=== PATIENT | female | born 1935 | race Caucasian/White ===

== ENCOUNTER 2017-11-09 12:19 | Emergency (ER) | payer OTHER ==
[~2017-11-09] VITALS: Ht 154.9 cm; Wt 80.0 kg
[2017-11-09 12:20] VITALS: BP 148/78; PULSE 98; RESP 20; TEMP 101.5; O2SAT 99
[2017-11-09 12:39] VITALS: BP 168/74; PULSE 93; RESP 22; O2SAT 98
--- NOTE | 2017-11-09 13:29 | PD ---
HPI Chief Complaint: Cold / Flu Symptoms Time Seen by Provider: 13:03 Travel History International Travel<30 days: No Contact w/Intl Traveler<30days: No Traveled to known affect area: No History of Present Illness HPI Patient is an 82-year-old female presents emergency department for evaluation of cough congestion and fever for the past day and a half. Patient states similar thing happened to her some few weeks ago and she went to a facility in [place] where she is from and she was tested for pneumonia and the flu and they were both negative. She states it feels very similar to that. She states she has been tolerating p.o. just fine, no shortness of breath no chest pain. She states that she did receive a flu shot this year. States symptoms are moderate, for the past day and a half, associated signs and symptoms and context as above PFSH Past Medical History Asthma: Yes High Cholesterol: Yes Hypertension: Yes ?: Not Past Surgical History Cholecystectomy: Yes Hysterectomy: Yes Social History Alcohol Use: No (OCC) Tobacco Use: No Substance Use: No Allergies-Medications (Allergen,Severity, Reaction): Coded Allergies: Penicillins (Verified Allergy, Unknown, 11/09/17) Sulfa (Sulfonamide Antibiotics) (Verified Allergy, Unknown, 11/09/17) Reported Meds & Prescriptions Reported Meds & Active Scripts Active Tamiflu (Oseltamivir Phosphate) 75 Mg Cap 75 Mg PO BID 5 Days Review of Systems Except as stated in HPI: all other systems reviewed are Neg Physical Exam Narrative GENERAL: Well-developed well-nourished in no obvious distress. Appears well and nontoxic and younger than stated age SKIN: Focused skin assessment warm/dry. HEAD: Atraumatic. Normocephalic. EYES: Pupils equal and round. No scleral icterus. No injection or drainage. ENT: No nasal bleeding or discharge. Mucous membranes pink and moist. TMs clear bilaterally, oropharynx clear moist. NECK: Trachea midline. No JVD. CARDIOVASCULAR: Regular rate and rhythm. No murmur appreciated. RESPIRATORY: No accessory muscle use. Clear to auscultation. Breath sounds equal bilaterally. GASTROINTESTINAL: Abdomen soft, non-tender, nondistended. Hepatic and splenic margins not palpable. MUSCULOSKELETAL: No obvious deformities. No clubbing. No cyanosis. No edema. NEUROLOGICAL: Awake and alert. No obvious cranial nerve deficits. Motor grossly within normal limits. Normal speech. PSYCHIATRIC: Appropriate mood and affect; insight and judgment normal. Data Data Last Documented VS Vital Signs Date Time Temp Pulse Resp B/P (MAP) Pulse Ox O2 Delivery O2 Flow Rate FiO2 11/09/17 15:32 11/09/17 15:06 101.8 83 18 95 Room Air Orders Orders Sepsis Workup Initiated (11/09/17 ) Complete Blood Count With Diff (11/09/17 13:21) Comprehensive Metabolic Panel (11/09/17 13:21) Prothrombin Time / Inr (Pt) (11/09/17 13:21) Act Partial Throm Time (Ptt) (11/09/17 13:21) Lactic Acid Sepsis Protocol (11/09/17 13:21) Lipase (11/09/17 13:21) Troponin I (11/09/17 13:21) Urinalysis - C+S If Indicated (11/09/17 13:21) Chest, Pa & Lat (11/09/17 13:21) Ecg Monitoring (11/09/17 13:21) Iv Access Insert/Monitor (11/09/17 13:21) Oximetry (11/09/17 13:21) Oxygen Administration (11/09/17 13:21) Sodium Chlorid 0.9% 500 Ml Inj (Ns 500 M (11/09/17 13:30) Acetaminophen (Tylenol) (11/09/17 13:30) Influenzae A/B Antigen (11/09/17 13:56) Ibuprofen (Motrin) (11/09/17 15:15) Ed Discharge Order (11/09/17 15:21) Labs Laboratory Tests Test 11/09/17 13:15 11/09/17 15:00 White Blood Count 5.2 TH/MM3 Red Blood Count 3.35 MIL/MM3 Hemoglobin 11.1 GM/DL Hematocrit 31.6 % Mean Corpuscular Volume 94.4 FL Mean Corpuscular Hemoglobin 33.0 PG Mean Corpuscular Hemoglobin Concent 34.9 % Red Cell Distribution Width 12.9 % Platelet Count 146 TH/MM3 Mean Platelet Volume 7.9 FL Neutrophils (%) (Auto) 85.5 % Lymphocytes (%) (Auto) 5.9 % Monocytes (%) (Auto) 6.5 % Eosinophils (%) (Auto) 1.7 % Basophils (%) (Auto) 0.4 % Neutrophils # (Auto) 4.5 TH/MM3 Lymphocytes # (Auto) 0.3 TH/MM3 Monocytes # (Auto) 0.3 TH/MM3 Eosinophils # (Auto) 0.1 TH/MM3 Basophils # (Auto) 0.0 TH/MM3 CBC Comment DIFF FINAL Differential Comment Prothrombin Time 10.4 SEC Prothromb Time International Ratio 1.0 RATIO Activated Partial Thromboplast Time 26.1 SEC Blood Urea Nitrogen 19 MG/DL Creatinine 0.97 MG/DL Random Glucose 100 MG/DL Total Protein 7.2 GM/DL Albumin 3.9 GM/DL Calcium Level 8.6 MG/DL Alkaline Phosphatase 77 U/L Aspartate Amino Transf (AST/SGOT) 25 U/L Alanine Aminotransferase (ALT/SGPT) 25 U/L Total Bilirubin 0.4 MG/DL Sodium Level 137 MEQ/L Potassium Level 4.0 MEQ/L Chloride Level 102 MEQ/L Carbon Dioxide Level 27.0 MEQ/L Anion Gap 8 MEQ/L Estimat Glomerular Filtration Rate 55 ML/MIN Lactic Acid Level 1.7 mmol/L Troponin I LESS THAN 0.02 NG/ML Lipase 72 U/L Urine Color YELLOW Urine Turbidity CLEAR Urine pH 5.5 Urine Specific [place] 1.015 Urine Protein NEG mg/dL Urine Glucose (UA) NEG mg/dL Urine Ketones NEG mg/dL Urine Occult Blood TRACE Urine Nitrite NEG Urine Bilirubin NEG Urine Urobilinogen LESS THAN 2.0 MG/DL Urine Leukocyte Esterase NEG Urine RBC 2 /hpf Urine WBC LESS THAN 1 /hpf Urine Squamous Epithelial Cells <1 /hpf Urine Mucus FEW /lpf Microscopic Urinalysis Comment CATH-CULT NOT IND MDM Medical Decision Making Medical Screen Exam Complete: Yes Emergency Medical Condition: Yes Differential Diagnosis Influenza, pneumonia, sepsis seems unlikely Narrative Course Patient room to the emergency department, she is febrile, she appears quite well and in no distress, she did test positive for influenza in the emergency department, chest x-ray negative, basic labs are reassuring. She was given normal saline, Tylenol and ibuprofen and defervesced well. Discussed with her symptomatic management, Tamiflu, return to ED criteria. She is stable for discharge Diagnosis Primary Impression: Influenza A Med/Other Pt SpecificInfo: Prescription(s) given Scripts Oseltamivir (Tamiflu) 75 Mg Cap 75 MG PO BID for Mgmt Viral Infection for 5 Days, #10 CAP 0 Refills Prov: Akhil Go MD 11/09/17 Disposition: 01 DISCHARGE HOME Condition: Stable Akhil Go MD Nov 09, 2017 13:29
[2017-11-09] MEDS ORDERED: SODIUM CHLORID 0.9% 500 ML INJ 500 ML IV ONE (13:30)
[2017-11-09] MEDS ORDERED: ACETAMINOPHEN 325 MG TAB PO ONE (13:30)
[2017-11-09 13:46] LABS: AUTOMATED NEUTROPHIL # 4.5 TH/MM3 (1.8-7.7); BASOPHIL % 0.4 % (0.0-2.0); EOSINOPHIL # 0.1 TH/MM3 (0-0.4); EOSINOPHIL % 1.7 % (0.0-4.0); HEMATOCRIT 31.6 % (35.0-46.0); HEMOGLOBIN 11.1 GM/DL (11.6-15.3); LYMPH % 5.9 % (9.0-44.0); LYMPHOCYTE # 0.3 TH/MM3 (1.0-4.8); MEAN CELL VOLUME 94.4 FL (80.0-100.0); MEAN CORPUSCULAR HGB CONC 34.9 % (32.0-36.0); MEAN PLATELET VOLUME 7.9 FL (7.0-11.0); MONO % 6.5 % (0.0-8.0); MONOCYTE # 0.3 TH/MM3 (0-0.9); NEUT % 85.5 % (16.0-70.0); PLATELET COUNT 146 TH/MM3 (150-450); RED BLOOD COUNT 3.35 MIL/MM3 (4.00-5.30); RED CELL DISTRIBUTION WIDTH 12.9 % (11.6-17.2); WHITE BLOOD COUNT 5.2 TH/MM3 (4.0-11.0)
--- NOTE | 2017-11-09 13:55 | RADRPT ---
EXAM DATE/TIME: 11/09/2017 13:42 [facility] COMPARISON: No previous studies available for comparison. INDICATIONS : Shortness of breath and cough with headache. MEDICAL HISTORY : None. SURGICAL HISTORY : None. ENCOUNTER: Initial ACUITY: 1 day PAIN SCORE: 3/10 LOCATION: Bilateral chest FINDINGS: PA and lateral views of the chest demonstrate the lungs to be symmetrically aerated without evidence of mass, infiltrate or effusion. There is a faint 7 mm pulmonary nodule in the peripheral right lower lung. There no prior studies for comparison. The cardiomediastinal contours are unremarkable. [place] us structures are intact. CONCLUSION: 1. No acute intrathoracic disease. 2. 7 mm nonspecific pulmonary nodule in the right lower lung. On a non-emergent outpatient basis, rec ommend a noncontrast CT thorax for further evaluation. Nirmal Mitchell MD on November 09, 2017 at 13:52 Board Certified Radiologist. This report was verified electronically.
[2017-11-09 13:58] LABS: PROTHROMBIN TIME - PATIENT 10.4 SEC (9.8-11.6)
[2017-11-09 14:02] LABS: ALBUMIN 3.9 GM/DL (3.4-5.0); ALT (GPT) 25 U/L (10-53); AST (GOT) 25 U/L (15-37); BLOOD UREA NITROGEN 19 MG/DL (7-18); CALCIUM 8.6 MG/DL (8.5-10.1); CHLORIDE 102 MEQ/L (98-107); CREATININE 0.97 MG/DL (0.50-1.00); GLOMERULAR FILTRATION RATE 55 ML/MIN (>89); GLUCOSE,RANDOM 100 MG/DL (74-106); SODIUM (NA) 137 MEQ/L (136-145)
[2017-11-09 14:05] LABS: ALKALINE PHOSPHATASE 77 U/L (45-117); TOTAL BILIRUBIN ADULT 0.4 MG/DL (0.2-1.0); TOTAL PROTEIN 7.2 GM/DL (6.4-8.2); TROPONIN I LESS THAN 0.02 NG/ML (0.02-0.05)
[2017-11-09 15:06] VITALS: BP 117/56; PULSE 83; RESP 18; TEMP 101.8; O2SAT 95
[2017-11-09] MEDS ORDERED: IBUPROFEN 600 MG TAB PO ONE (15:15)
[2017-11-09 15:17] LABS: BILIRUBIN, URINE NEG (NEG); BLOOD, URINE TRACE (NEG); GLUCOSE,URINE NEG (NEG); KETONE, URINE NEG (NEG); MUCUS URINE FEW /lpf (OCC); NITRITE,URINE NEG (NEG); PH, URINE 5.5 (5.0-8.5); SQUAMOUS EPITHELIAL CELL URINE <1 /hpf (0-5); URINE COLOR YELLOW (YELLW/STRAW); URINE LEUKOCYTE ESTERASE NEG (NEG)
[2017-11-09] MEDS ORDERED: OSEL75 PO (15:21)
== END 2017-11-09 15:34 | disposition home or self-care (01) ==
LOC: NEPC 12:19
DX: J10.1 Influenza due to other identified influenza virus with other respiratory manifestations (principal); J45.909 Unspecified asthma, uncomplicated; E78.00 Pure hypercholesterolemia, unspecified; I10 Essential (primary) hypertension
CPT/HCPCS: 71046; 80053; 81001; 83605; 83690; 84484; 85025; 85610; 85730; 87804; 96360; 99284; J7040